=== PATIENT | female | born 1955 | race Caucasian/White ===

== ENCOUNTER → 2019-06-20 11:08 | Outpatient (CLI) | payer BC, SELFPAY ==
--- NOTE | ~2019-06-20 | MR_ITS ---
EXAMINATION: MR shoulder RT wo con DATE: 06/20/2019 11:50 INDICATION: Right shoulder and arm pain and clicking post fall 5 months prior. TECHNIQUE: Magnetic resonance imaging (MRI) of the right shoulder was performed without intravenous c ontrast. Sequences included axial PD-weighted FS FSE, coronal oblique PD-weighted FS FSE, coronal obl ique T2-weighted FS FSE, sagittal PD-weighted FS FSE, and sagittal T1-weighted SE. COMPARISON: None. FINDINGS: Coracoacromial arch: The acromion undersurface is curved in morphology (type II). The coracoacromial ligament is normal. M ild acromioclavicular osteoarthritis with small inferiorly directed osteophyte arising from the later al head of the clavicle. Rotator cuff: Moderate supraspinatus and mild infraspinatus tendinopathy. High-grade partial-thickness articular si ded tear measuring approximately 1.5 cm AP along the superior facet footplate of the supraspinatus an d conjoined portion of the supraspinatus and infraspinatus tendons. There is attenuation of the dista l aspect of the torn tendon with concave margin to the residual irregular frayed appearing bursal stefany ed fibers. There is a thickened rotator cuff able along the retracted articular sided tear margin whi ch is located approximately 2.5 cm from the greater tuberosity footplate approximately one third the distance between the apex of the humeral head and the rim of the glenoid. Although no discrete fluid signal intensity full-thickness tear defect is appreciated, small full-thickness perforations through the frayed bursal sided fibers could not be excluded. The teres minor tendon is normal. Mild subscap ularis tendinopathy without discrete tear. Normal rotator cuff muscle bulk and signal. Biceps tendon, glenoid labrum and glenohumeral cartilage: Full-thickness tear of the long head biceps tendon which is retracted below the intertubercular groov e. Thickening and frayed intra-articular portion of the torn tendon is balled up along the medial asp ect of the rotator cuff interval. There is degenerative tearing of the superior glenoid labrum which appears thickened with amorphous increased signal along its base which transitions to a more well-def ined linear tear at the base of the posterior superior labrum. [place] complex with absent anterosuper ior glenoid labrum and thickened middle glenohumeral ligament. Less severe degeneration of the lanre inferior glenoid labrum. Glenohumeral cartilage is relatively preserved. Fluid: Moderate-sized glenohumeral joint effusion with mild synovitis at the axillary and deep subscapular r ecesses. No loose osteochondral bodies. Small amount of fluid additional synovitis in the subacromial /subdeltoid bursa consistent with mild to moderate bursitis. Bones: Normal marrow signal with no fracture or pathologic marrow replacing process. IMPRESSION: 1. Severe partial-thickness/near full-thickness articular sided tear of the supraspinatus and conjoin ed portion of the supraspinatus and infraspinatus tendons. 2. [place] complex with tear at the posterior superior glenoid labrum and more irregular degenerative tearing of the superior and anteroinferior labrum. 3. Full-thickness tear of the long head biceps tendon. 4. Likely reactive moderate sized glenohumeral joint effusion. 5. Mild to moderate subacromial/subdeltoid bursitis. 6. Mild acromioclavicular joint osteoarthritis. Reviewed, dictated and finalized at location A. FORCE ADVISOR IMPRESSION: 1. Severe partial-thickness/near full-thickness articular sided tear of the sup raspinatus and conjoined portion of the supraspinatus and infraspinatus tendons . 2. [place] complex with tear at the posterior superior glenoid labrum and more i rregular degenerative tearing of the superior and ant
== END ==
PROVIDERS: PCP Internal Medicine; Visit Provider Orthopaedic Surgery
DX: M19.011 Primary osteoarthritis, right shoulder (principal); M75.51 Bursitis of right shoulder; M25.411 Effusion, right shoulder; S46.111A Strain of muscle, fascia and tendon of long head of biceps, right arm, initial encounter; S43.431A Superior glenoid labrum lesion of right shoulder, initial encounter
CPT/HCPCS: 73221

== ENCOUNTER 2020-04-02 14:48 | Outpatient (CLI) | payer BC, SELFPAY ==
--- NOTE | ~2020-04-02 | MM_ITS ---
EXAMINATION: MM screening lyric BI w britt HISTORY: Screening TECHNIQUE: Craniocaudal and mediolateral oblique 3-D tomosynthesis images were obtained and synthetic 2-D images were generated. CAD analysis was submitted and interpreted. COMPARISON: Comparison to multiple prior studies sequentially, with oldest reviewed study dated 01/12. BREAST PARENCHYMAL COMPOSITION: There are scattered areas of fibroglandular density. FINDINGS: There is no evidence of suspicious mass, calcification, or architectural distortion to sugg est malignancy in either breast. There has been no suspicious interval change. IMPRESSION: 1. No mammographic evidence of malignancy. 2. Recommend routine screening mammography in one year. BI-RADS Category 1: Negative Reviewed, dictated and finalized at location A. LIAISON
--- NOTE | ~2020-04-02 | DEXA_ITS ---
Bone Density Report Name: Nicole Barth Age: 64 Sex: Female Ethnicity: White Date of : 1955 Indication: postmenopausal; height loss; prior fracture; cancer; hysterectomy; Referring Provider: NICKY, RONNIE Study: Bone densitometry was performed. Exam Date: April 02, 2020 Accession number: [id number] Bone Density: Region BMD T-score Z-score Classification AP Spine (L1-L4) 0.963 -0.8 1.1 Normal Femoral Neck (Left) 0.790 -0.5 1.1 Normal Total Hip (Left) 1.054 0.9 2.2 Normal Total Hip Bilateral Avg 1.059 0.9 2.3 Normal Femoral Neck (Right) 0.785 -0.6 1.0 Normal Total Hip (Right) 1.062 1.0 2.3 Normal World Health Organization criteria for BMD impression classify patients as: Normal (T-score at or above -1.0), Osteopenia (T-score between -1.0 and -2.5), or Osteoporosis (T-score at or below -2.5). 10-year Fracture Risk: FRAX not reported because: All T-scores for Spine Total, Hip Total, Femoral Neck at or above -1.0 Previous Exams: Region Exam Age BMD T-score BMD Change BMD Change Date g/cm2 vs Baseline vs Previous AP Spine(L1-L4) 04/02/2020 64 0.963 -0.8 -0.012(-1.3%) 0.007(0.7%)# 02/07/2016 60 0.956 -0.8 -0.019(-2.0%)# -0.019(-2.0%)03/17/2012 56 0.975 -0.7 Total Hip(Left) 04/02/2020 64 1.054 0.9 0.029(2.8%)* 0.028(2.7%)# 02/07/2016 60 1.026 0.7 0.001(0.1%)# 0.001(0.1%)# 03/17/2012 56 1.025 0.7 Total Hip(Right) 04/02/2020 64 1.062 1.0 0.059(5.9%)* 0.066(6.6%)# 02/07/2016 60 0.996 0.4 -0.007(-0.7%)# -0.007(-0.7%)# 03/17/2012 56 1.003 0.5 *Denotes significance at 95% confidence level, LSC for AP Spine = 0.022 g/cm2, LSC for Total Hip = 0.027 g/cm2 Clinical Information Provided by Patient: Has had a low trauma fracture Has used the following medications: Vitamin D, Calcium Has the following medical conditions: Cancer, Hysterectomy Patient maximum height was 68 Menopause Age: 38 Drinks caffeinated beverages Onset of menses at age 10 Number of children 3 Impression: The patient has normal bone mass. The patient has risk factors, including: previous fracture. No significant bone loss was observed. Discussion: BONE DENSITY IS ABOVE THE MINIMUM DESIRABLE LEVEL AT ALL SKELETAL SITES TESTED. This patient?s bone mineral density is above the minimum desirable level (T-score -1.0 or better) at all sites measured. The patient should follow a healthful lifestyle (good nutrition
== END 2020-04-02 14:49 | disposition home or self-care (01) ==
PROVIDERS: PCP Internal Medicine; Visit Provider Nurse Practitioner
DX: Z12.31 Encounter for screening mammogram for malignant neoplasm of breast (principal); Z78.0 Asymptomatic menopausal state
CPT/HCPCS: 77063; 77067; 77080

== ENCOUNTER 2020-05-21 14:51 | Outpatient (CLI) | payer BC, SELFPAY ==
--- NOTE | ~2020-05-21 | XR_ITS ---
XR ribs LT 2V w CXR 2V DATE: 05/21/2020 15:12 INDICATION: Chest wall pain, pain under left axilla. No injury. TECHNIQUE: PA and lateral chest. Three views of left chest. COMPARISON: portable AP chest FINDINGS: Normal heart size. Minimal aortic tortuosity. No hilar or mediastinal enlargement. No pu lmonary infiltrate or consolidation, pulmonary vascular congestion or pleural effusion or pneumothora x. Surgical clips overlie the lower left neck. Diffuse osteopenia. No left rib fracture is detected. IMPRESSION: No active cardiopulmonary disease Diffuse osteopenia No rib fracture is detected. Reviewed, dictated and finalized at location A. RITY ESCORT
== END 2020-05-21 14:52 | disposition home or self-care (01) ==
PROVIDERS: Family Provider Internal Medicine; PCP Internal Medicine; Visit Provider Internal Medicine
DX: M85.88 Other specified disorders of bone density and structure, other site (principal)
CPT/HCPCS: 71046; 71100

== ENCOUNTER → 2020-06-14 08:57 | Outpatient (CLI) | payer BC, SELFPAY ==
--- NOTE | ~2020-06-14 | US_ITS ---
EXAMINATION: US axilla LT HISTORY: Palpable lumps of the left axilla, recent COVID 19 that examination. TECHNIQUE: High-resolution left axillary ultrasound is performed. FINDINGS: Multiple lymph nodes are seen in the left axilla in the area of clinical concern. The large st short axis diameter is 1.1 cm. No suspicious mass is identified. IMPRESSION: Mildly enlarged left axillary lymph node which could be reactive and related to COVID 19 vaccination. Recommend continued clinical follow-up with repeat imaging if physical examination remains abnormal. Reviewed, dictated and finalized at location A. PING ROOM HELPER IMPRESSION: Mildly enlarged left axillary lymph node which could be reactive and related to COVID 19 vaccination. Recommend continued clinical follow-up with repeat imagi ng if physical examination remains abnormal.
== END ==
PROVIDERS: PCP Internal Medicine; Visit Provider Nurse Practitioner
DX: M79.622 Pain in left upper arm (principal); R59.0 Localized enlarged lymph nodes
CPT/HCPCS: 76882

== ENCOUNTER → 2020-12-16 09:02 | Outpatient (CLI) | payer BC, SELFPAY ==
--- NOTE | ~2020-12-16 | XR_ITS ---
EXAMINATION: XR hip BI 2V w AP pelvis EXAM DATE: 12/16/2020 09:33 INDICATION: Pt c/o pain in bilateral hips, left hip lateral side and radiates through groin, right hi p occasional pain through groin x last couple months, no surg. TECHNIQUE: Each hip imaged independently (separate right and also left hip) 'frog leg' and frontal p rojections for interpretation. Frontal projection pelvis. There is no prior study for comparison. FINDINGS: No radiographic evidence of hip avascular necrosis. Symmetric mild bilateral hip primary o steoarthritis. There are no acute fractures or dislocations identified. There is no subcutaneous gas . The soft tissue is unremarkable. There are no radiopaque foreign bodies. IMPRESSION: Mild bilateral hip osteoarthritis. Reviewed, dictated and finalized at location A.
== END ==
PROVIDERS: PCP Internal Medicine; Visit Provider Internal Medicine
DX: M16.0 Bilateral primary osteoarthritis of hip (principal)
CPT/HCPCS: 73521

== ENCOUNTER 2021-02-10 08:45 | Outpatient (CLI) | payer BC, SELFPAY ==
--- NOTE | ~2021-02-10 | CT_ITS ---
EXAMINATION: CT abdomen pelvis wo con DATE: 02/10/2021 09:13 INDICATION: Left lower quadrant pain for 4 months TECHNIQUE: Computed tomography (CT) of the abdomen and pelvis was performed without intravenous contr ast. The dose-length product was 1209.96 mGy-cm. Automated exposure control and iterative reconstruct ion technique were employed. COMPARISON: None. FINDINGS: Lung bases are unremarkable. Heart size normal. No significant pleural or pericardial effus ion. The liver, spleen, pancreas, adrenal glands and kidneys are unremarkable. Gallbladder is present . There is retroaortic left renal vein. Nonobstructive bowel gas pattern. No evidence for diverticuli tis. Uterus is surgically absent. No free air or free fluid. Mild levocurvature of the lumbar spine. Mild lumbar spondylosis with grade 1 degenerative spondylolisthesis at L4-5. Small fat-containing umb ilical hernia. IMPRESSION: 1. No acute abdominal abnormality. Reviewed, dictated and finalized at location B.
== END 2021-02-10 08:46 | disposition home or self-care (01) ==
PROVIDERS: PCP Internal Medicine; Visit Provider Internal Medicine
DX: R10.32 Left lower quadrant pain (principal); K42.9 Umbilical hernia without obstruction or gangrene; M43.16 Spondylolisthesis, lumbar region
CPT/HCPCS: 74176

== ENCOUNTER → 2021-11-17 00:22 | Outpatient (CLI) | payer MEDICARE, OTHER, SELFPAY ==
[2021-11-17 11:12] LABS: SARS-CoV-2 RNA PCR Negative
== END ==
PROVIDERS: PCP Internal Medicine; Visit Provider Internal Medicine
DX: Z20.822 Contact with and (suspected) exposure to COVID-19 (principal)
CPT/HCPCS: C9803; U0003; U0005

== ENCOUNTER → 2022-06-04 10:14 | Outpatient (CLI) | payer MEDICARE, OTHER, SELFPAY ==
--- NOTE | ~2022-06-04 | CT_ITS ---
EXAMINATION: CT sinus wo con DATE: 06/04/2022 10:32 INDICATION: Chronic bilateral maxillary sinusitis TECHNIQUE: Computed tomography (CT) of the paranasal sinuses was performed without intravenous contra st. The dose-length product (DLP) was 387.90 mGy-cm. Iterative reconstruction was used. COMPARISON: None FINDINGS: There is normal development and pneumatization of the paranasal sinuses. There is minimal o pacification of ethmoidal air cells and right maxillary sinus. The frontal, sphenoid, and left maxill keenan sinuses are clear. The bilateral ostiomeatal complexes are patent. Visualized soft tissues are un remarkable. The mastoid air cells are clear. IMPRESSION: 1. Mild sinus disease. Reviewed, dictated and finalized at location B. SCREW ASSEMBLER IMPRESSION: 1. Mild sinus disease.
== END ==
PROVIDERS: PCP Otolaryngology; Visit Provider Otolaryngology
DX: J32.0 Chronic maxillary sinusitis (principal)
CPT/HCPCS: 70486

== ENCOUNTER 2022-08-09 20:26 | Emergency (ER) | payer MEDICARE, OTHER, SELFPAY ==
--- NOTE | ~2022-08-09 | XR_ITS ---
EXAMINATION: XR chest 2V 08/09/2022 21:06 INDICATION: Chest pain and palpitations PROCEDURE: 2 view chest COMPARISON: 12/25/2018 FINDINGS: The lungs are clear. Chronic left basilar atelectasis/scarring. The cardiomediastinal silho uette is within normal limits. There are no pleural effusions. There is no pneumothorax suspected. IMPRESSION: 1: NO ACUTE CARDIOPULMONARY DISEASE. Reviewed, dictated and finalized at location A.
--- NOTE | 2022-08-09 20:31 | ECG_ITS ---
Measurements Intervals [place] Rate: 122 P: 31 [place]: 172 QRS: -11 QRSD: 96 T: 37 QT: 298 QTc: 426 Interpretive Statements SINUS TACHYCARDIA COMPARED TO ECG 12/25/2018 07:27:55 SINUS TACHYCARDIA NOW PRESENT Electronically Signed On 08-10-2022 17:38:15 CDT by Anselmo Solis M.D.
[2022-08-09 20:36] VITALS: BP 141/102; PULSE 123; RESP 14; TEMP 36.6; O2SAT 98
[2022-08-09 20:46] LABS: Basophils Percent Auto 0.5 % (0.2-1.2); Eosinophils Absolute Auto 0.2 K/mm3 (0-0.3); Eosinophils Percent Auto 2.6 % (0-4.4); Hematocrit 36.9 % (37.0-47.0); Hemoglobin 12.3 g/dL (12.0-15.0); Immature Granulocyte Absolute 0.02 K/mm3 (0.00-0.031); Immature Granulocyte Percent A 0.2 % (0-0.5); Lymphocytes Absolute Auto 3.39 K/mm3 (0.9-3.2); Lymphocytes Percent Auto 40.6 % (18.3-44.2); Mean Corpuscular HGB Conc 33.3 g/dl (32-36); Mean Corpuscular Hemoglobin 29.1 pg (26-34); Mean Corpuscular Volume 87.4 fl (80-100); Mean Platelet Volume 10.3 fl (7.4-10.4); Monocytes Absolute Auto 0.9 K/mm3 (0.1-0.6); Monocytes Percent Auto 10.5 % (2.6-8.5); Neutrophils Absolute Auto 3.8 K/mm3 (1.3-6.7); Neutrophils Percent Auto 45.6 % (45.5-73.1); Platelet Count Result 267 k/mm3 (150-375); Red Blood Count 4.22 M/mm3 (4.2-5.4); Red Cell Distribution Width 14.6 % (11.5-14.5); White Blood Count 8.4 K/mm3 (4.5-10.0)
[2022-08-09 21:00] LABS: INR 1.1; Prothrombin Time 14.1 Seconds (11.1-14.7)
[2022-08-09 21:01] LABS: Alanine Aminotransferase 34 U/L (6-35); Alkaline Phosphatase 85 U/L (38-126); Anion Gap 12 mmol/L (8-16); Aspartate Amino Transferase 30 U/L (14-36); Bilirubin,Total 0.5 mg/dL (0.2-1.3); Blood Urea Nitrogen 18 mg/dL (7-17); Carbon Dioxide 21 mmol/L (22-30); Chloride 105 mmol/L (98-107); Estimated CRCL calculation 70 ml/min; Estimated Glomerular Filt Rate > 60; Glucose 201 mg/dL (65-110); Lipase 434 U/L (23-300); Partial Thromboplastin Time 25.1 SECONDS (22.3-36.8); Potassium 3.7 mmol/L (3.4-5.0); Sodium 138 mmol/L (137-145)
[2022-08-09 21:12] LABS: Troponin I < 0.012 ng/mL (0.000-0.034)
== END 2022-08-09 23:17 | disposition left against medical advice (07) ==
PROVIDERS: Emergency Provider Emergency Medicine; PCP Internal Medicine
DX: R00.0 Tachycardia, unspecified (principal)
CPT/HCPCS: 36415; 71046; 80053; 83690; 84484; 85025; 85610; 85730; 93005; 99199

== ENCOUNTER 2022-08-19 19:19 | Emergency (ER) | payer MEDICARE, OTHER, SELFPAY ==
[2022-08-19 19:35] VITALS: BP 145/90; PULSE 82; RESP 16; TEMP 36.9; O2SAT 99
--- NOTE | 2022-08-19 19:36 | ED.URI ---
HPI - URI/Sore Throat General Chief Complaint: Upper Respiratory Infection Stated Complaint: COUGH/WHEEZING Source: patient and RN notes reviewed History of Present Illness HPI Narrative: 67 yo F presents to urgent care with complaints of a worsening cough since last Tuesday. Pt states her cough seems to be worse at nighttime. Pt also reports congestion and pressure in her sinuses, specifically left frontal. Pt reports some wheezing at home and reports upper chest pain with coughing. Pt reports some SOB. Denies any fevers, chills, vomiting, diarrhea, or abdominal pain. Pt took Mucinex today with minimal relief. Related Data Home Medications Medication Instructions Recorded Confirmed ascorbic acid (vitamin C) 1,000 mg 1 gm PO DAILY 04/02/19 08/19/22 tablet (Vitamin C With Eliane Hips) calcium carbonate 500 mg calcium 500 mg PO DAILY 04/02/19 08/19/22 (1,250 mg) capsule (Calci-Mix) cholecalciferol (vitamin D3) 125 5,000 unit PO DAILY 04/02/19 08/19/22 mcg (5,000 unit) capsule coenzyme Q10 10 mg capsule (Co 10 mg PO ONCE 04/02/19 08/19/22 Q-10) levothyroxine 137 mcg tablet 137 mcg PO DAILY 04/02/19 08/19/22 multivitamin 1 tablet PO DAILY 04/02/19 08/19/22 plant stanol bruce 450 mg tablet 450 mg PO DAILY 04/02/19 08/19/22 (Cholest Off) melatonin 10 mg disintegrating 10 mg PO DAILY 04/03/19 08/19/22 tablet levocetirizine 5 mg tablet (Xyzal) 5 mg PO DAILY PRN Congestion 05/21/20 08/19/22 magnesium 250 mg tablet 250 mg PO DAILY PRN useasdirected 08/10/21 08/19/22 Allergies Allergy/AdvReac Type Severity Reaction Status Date / Time codeine Allergy Severe Itching Verified 08/19/22 19:42 doxycycline Allergy Intermediate Nausea Verified 08/19/22 19:42 Sulfa (Sulfonamide Allergy Unknown Fever Verified 08/19/22 19:42 Antibiotics) Review of Systems Review of Systems: Pertinent positives and pertinent negatives per HPI. [facility] Past Medical History Medical History (Updated 08/19/22 @ 19:55 by Lluvia Gallo, BROTHEL KEEPER) Abdominal pain, left lower quadrant IFG (impaired fasting glucose) Pre-diabetes Surgical History Surgical History H/O thyroidectomy H/O: hysterectomy Family History Family History Sibling Family history of malignant neoplasm of ovary Family history of lung cancer Family history of malignant neoplasm of breast in first degree relative Father Malignant neoplasm of prostate Family history of malignant neoplasm of kidney Mother Family history of malignant neoplasm of ovary Other Family history of cardiovascular disease Family history of malignant neoplasm Social History Social History Smoking status: Unknown if ever smoked Second hand tobacco smoke exposure: No Smoking end date: 04/25/78 Alcohol intake: current Substance use: never Lack of Transportation: No Lack of Food: Never True Current Housing: I Have Housing Concerned About Future Housing: No Difficulty Paying Gas/Electric Bills: No Difficulty Paying for Meds: No Currently Unemployed: No Education: High School Diploma/GED Difficulty w/ Childcare or Family Care: No Spiritual care concerns: No Comments At the time of my signature, I reviewed and agree with the nursing past medical, surgical, social, and family history. There is no relevant family history pertinent to the patient complaint. Exam Narrative: GENERAL: This is a well-nourished, well-developed patient, in no apparent distress. HEAD: normocephalic, atraumatic. EYES: Sclera clear/white. Vision is grossly intact. EARS: External ears normal, auditory canals clear and without drainage, TMs normal without perforation. Hearing grossly intact. NOSE: External nose normal with no obvious nasal discharge, nares without redness, no rhinorrhea. THROAT: Mucous membrane
== END 2022-08-19 20:03 | disposition home or self-care (01) ==
PROVIDERS: Emergency Provider Nurse Practitioner Family; PCP Internal Medicine
DX: J40 Bronchitis, not specified as acute or chronic (principal); J01.10 Acute frontal sinusitis, unspecified; Z87.891 Personal history of nicotine dependence; R73.01 Impaired fasting glucose; R73.03 Prediabetes
CPT/HCPCS: 99213; G0463

== ENCOUNTER 2022-09-01 14:30 | Outpatient (RCR) | payer MEDICARE, OTHER, SELFPAY ==
[2022-08-12 15:18] VITALS: BMI 36.0
[2022-08-12 15:20] VITALS: BMI 36.0
== END 2022-10-18 11:05 | disposition home or self-care (01) ==
LOC: ANHDMC 14:30
PROVIDERS: PCP Internal Medicine; Visit Provider Internal Medicine
DX: E11.9 Type 2 diabetes mellitus without complications (principal); Z71.89 Other specified counseling; Z71.3 Dietary counseling and surveillance
CPT/HCPCS: 97802; G0108; G0109

== ENCOUNTER 2022-11-17 14:30 | Outpatient (RCR) | payer MEDICARE, OTHER, SELFPAY | END 2023-01-31 13:23 | disposition home or self-care (01) | LOC: ANHDMC 14:30 | PROVIDERS: PCP Internal Medicine; Visit Provider Internal Medicine | DX: E11.9 Type 2 diabetes mellitus without complications (principal); Z71.89 Other specified counseling | CPT/HCPCS: G0109 ==

== ENCOUNTER 2023-02-10 14:49 | Outpatient (RCR) | payer MEDICARE, OTHER, SELFPAY | END 2023-02-28 11:13 | disposition home or self-care (01) | LOC: ANHDMC 14:49 | PROVIDERS: PCP Internal Medicine; Visit Provider Internal Medicine | DX: E11.9 Type 2 diabetes mellitus without complications (principal); Z71.89 Other specified counseling | CPT/HCPCS: G0109 ==

== ENCOUNTER 2023-05-19 08:08 | Outpatient (CLI) | payer MEDICARE, OTHER, SELFPAY ==
[2023-05-19 13:39] LABS: Basophils Percent Auto 0.4 % (0.2-1.2); Eosinophils Absolute Auto 0.2 K/mm3 (0-0.3); Eosinophils Percent Auto 4.7 % (0-4.4); Hemoglobin 11.2 g/dL (12.0-15.0); Immature Granulocyte Absolute 0.01 K/mm3 (0.00-0.031); Immature Granulocyte Percent A 0.2 % (0-0.5); Lymphocytes Absolute Auto 1.66 K/mm3 (0.9-3.2); Lymphocytes Percent Auto 35.8 % (18.3-44.2); Mean Corpuscular HGB Conc 31.1 g/dl (32-36); Mean Corpuscular Hemoglobin 27.3 pg (26-34); Mean Corpuscular Volume 87.8 fl (80-100); Mean Platelet Volume 11.3 fl (7.4-10.4); Monocytes Absolute Auto 0.5 K/mm3 (0.1-0.6); Monocytes Percent Auto 10.1 % (2.6-8.5); Neutrophils Absolute Auto 2.3 K/mm3 (1.3-6.7); Neutrophils Percent Auto 48.8 % (45.5-73.1); Platelet Count Result 264 k/mm3 (150-375); Red Cell Distribution Width 15.5 % (11.5-14.5); White Blood Count 4.6 K/mm3 (4.5-10.0)
[2023-05-19 13:59] LABS: Hemoglobin A1C 6.7 % (<5.7)
[2023-05-19 14:14] LABS: Alanine Aminotransferase 27 U/L (6-35); Albumin Level 4.6 g/dL (3.5-5.1); Alkaline Phosphatase 80 U/L (38-126); Anion Gap 11 mmol/L (8-16); Aspartate Amino Transferase 34 U/L (14-36); Bilirubin,Total 0.5 mg/dL (0.2-1.3); Blood Urea Nitrogen 16 mg/dL (7-17); Carbon Dioxide 24 mmol/L (22-30); Chloride 106 mmol/L (98-107); Estimated Glomerular Filt Rate > 60; Glucose 104 mg/dL (65-110); Potassium 3.8 mmol/L (3.4-5.0); Sodium 141 mmol/L (137-145)
== END 2023-05-19 08:09 | disposition home or self-care (01) ==
PROVIDERS: PCP Internal Medicine; Visit Provider Internal Medicine
DX: R00.2 Palpitations (principal); E11.9 Type 2 diabetes mellitus without complications; I83.90 Asymptomatic varicose veins of unspecified lower extremity; E89.0 Postprocedural hypothyroidism; E55.9 Vitamin D deficiency, unspecified; C73 Malignant neoplasm of thyroid gland
CPT/HCPCS: 36415; 80053; 82306; 83036; 84443; 85025; 86800

== ENCOUNTER 2023-06-04 10:16 | Emergency (ER) | payer MEDICARE, OTHER, SELFPAY ==
[2023-06-04 10:25] VITALS: BP 133/91; PULSE 105; RESP 20; TEMP 37.2; O2SAT 99
--- NOTE | 2023-06-04 10:34 | ED.URI ---
HPI - URI/Sore Throat General Chief Complaint: Upper Respiratory Infection Stated Complaint: COUGH/CONGESTION/SINUS Time Seen by Provider: 06/04/23 10:34 Source: patient and family Mode of arrival: ambulatory Limitations: no limitations History of Present Illness HPI Narrative: 67-year-old female presents with complaint of cough, chest congestion, fatigue for 6 days. No chest pain or shortness of breath. Patient also reports some intermittent sinus pressure and ear pain. Afebrile. All systems reviewed and negative except as noted above. Related Data Home Medications Medication Instructions Recorded Confirmed ascorbic acid (vitamin C) 1,000 mg 1 gm PO DAILY 04/02/19 05/24/23 tablet (Vitamin C With Eliane Hips) calcium carbonate 500 mg calcium 500 mg PO DAILY 04/02/19 05/24/23 (1,250 mg) capsule (Calci-Mix) cholecalciferol (vitamin D3) 125 5,000 unit PO DAILY 04/02/19 05/24/23 mcg (5,000 unit) capsule coenzyme Q10 10 mg capsule (Co 10 mg PO ONCE 04/02/19 05/24/23 Q-10) levothyroxine 137 mcg tablet 137 mcg PO DAILY 04/02/19 05/24/23 multivitamin 1 tablet PO DAILY 04/02/19 05/24/23 plant stanol bruce 450 mg tablet 450 mg PO DAILY 04/02/19 05/24/23 (Cholest Off) melatonin 10 mg disintegrating 10 mg PO DAILY 04/03/19 05/24/23 tablet levocetirizine 5 mg tablet (Xyzal) 5 mg PO DAILY PRN Congestion 05/21/20 05/24/23 magnesium 250 mg tablet 250 mg PO DAILY PRN useasdirected 08/10/21 05/24/23 Allergies Allergy/AdvReac Type Severity Reaction Status Date / Time codeine Allergy Severe Itching Verified 05/24/23 09:00 doxycycline Allergy Intermediate Nausea Verified 05/24/23 09:00 Sulfa (Sulfonamide Allergy Unknown Fever Verified 05/24/23 09:00 Antibiotics) Review of Systems Review of Systems: CONSTITUTIONAL: Denies fever, chills, or sweats. EYES: Denies visual changes, redness, or discharge. ENT: Reports rhinorrhea, congestion, sinus pressure, ear pressure. Denies sore throat CARDIOVASCULAR: Denies chest pain, palpitations, or edema. RESPIRATORY: reports cough. Denies dyspnea. GASTROINTESTINAL: Denies abdominal pain, nausea, vomiting, or diarrhea. GENITOURINARY: Denies dysuria or hematuria. SKIN: Denies rash or itching. MUSCULOSKELETAL: Denies back pain, joint pain, or myalgia. NEUROLOGIC: Denies headache, numbness, or weakness. PSYCHIATRIC: Denies anxiety or depression. All other systems reviewed are negative, except as documented in HPI. [facility] Past Medical History Medical History Abdominal pain, left lower quadrant IFG (impaired fasting glucose) Pre-diabetes Surgical History Surgical History H/O thyroidectomy H/O: hysterectomy Family History Family History Sibling Family history of malignant neoplasm of ovary Family history of lung cancer Family history of malignant neoplasm of breast in first degree relative Father Malignant neoplasm of prostate Family history of malignant neoplasm of kidney Mother Family history of malignant neoplasm of ovary Other Family history of cardiovascular disease Family history of malignant neoplasm Social History Social History (Updated 05/24/23 @ 09:05 by Yakelin Briceño CMA) Social History: Caffeine-coffee/tea Smoking status: Former smoker Second hand tobacco smoke exposure: No Smoking end date: 04/25/78 Alcohol intake: current Alcohol use details: occasionally Substance use: never Substance use type: does not use Do You Feel Safe in your Home?: Yes Lack of Transportation: No Lack of Food: Never True Current Housing: I Have Housing Concerned About Future Housing: No Difficulty Paying Gas/Electric Bills: No Difficulty Paying for Meds: No Currently Unemployed: No Education: High School Diploma/GED Difficulty w/ Childcare or Family Care:
== END 2023-06-04 11:10 | disposition home or self-care (01) ==
PROVIDERS: Emergency Provider Nurse Practitioner Family; PCP Internal Medicine
DX: J06.9 Acute upper respiratory infection, unspecified (principal); Z87.891 Personal history of nicotine dependence; R73.03 Prediabetes
CPT/HCPCS: 99213; G0463

== ENCOUNTER 2023-11-18 08:47 | Outpatient (CLI) | payer MEDICARE, OTHER, SELFPAY ==
[2023-11-18 19:01] LABS: Alanine Aminotransferase 26 U/L (6-35); Albumin Level 4.4 g/dL (3.5-5.1); Alkaline Phosphatase 84 U/L (38-126); Anion Gap 12 mmol/L (4-12); Aspartate Amino Transferase 33 U/L (14-36); Bilirubin,Total 0.4 mg/dL (0.2-1.3); Blood Urea Nitrogen 12 mg/dL (7-17); Calcium 8.9 mg/dL (8.4-10.2); Carbon Dioxide 22 mmol/L (22-30); Chloride 104 mmol/L (98-107); Cholesterol 131 mg/dL (0-200); Estimated Glomerular Filt Rate > 60; Glucose 122 mg/dL (65-110); HDL Direct 30 mg/dL; Potassium 4.2 mmol/L (3.4-5.0); Sodium 138 mmol/L (137-145); Triglycerides 149 mg/dL (<150)
[2023-11-18 19:13] LABS: LDL Cholesterol Direct 70 mg/dL
[2023-11-18 19:27] LABS: Hemoglobin A1C 6.9 % (<5.7)
[2023-11-18 19:40] LABS: Ferritin 6.18 ng/mL (11.1-264)
[2023-11-18 19:49] LABS: Creatinine Urine 117.4 mg/dL
[2023-11-18 19:53] LABS: MALB Creatinine Ratio 10.5 mg/g (0-30); Microalbumin Urine Random 12.3 mg/L (0-16.7)
[2023-11-29 05:29] LABS: Apolipoprotein B 76 mg/dL
== END 2023-11-18 08:48 | disposition home or self-care (01) ==
LOC: ANHGOSHLAB 08:49
PROVIDERS: PCP Internal Medicine; Visit Provider Internal Medicine
DX: E03.9 Hypothyroidism, unspecified (principal); E11.9 Type 2 diabetes mellitus without complications; E78.2 Mixed hyperlipidemia; I10 Essential (primary) hypertension; D64.9 Anemia, unspecified; Z85.850 Personal history of malignant neoplasm of thyroid
CPT/HCPCS: 36415; 80053; 80061; 82043; 82172; 82728; 83036; 84443

== ENCOUNTER 2023-12-13 10:01 | Outpatient (CLI) | payer MEDICARE, OTHER, SELFPAY ==
--- NOTE | ~2023-12-13 | US_ITS ---
EXAMINATION: US carotid duplex BI DATE: 12/13/2023 10:44 INDICATION: Carotid stenosis. TECHNIQUE: Grayscale, color Doppler, and pulsed Doppler images of the cervical carotid arteries were obtained. The degree of vessel stenosis is placed in one of the following categories: normal, <50%, 5 0-69%, >=70% but less than near-occlusion, near-occlusion, or total occlusion. Note that percent sten osis relative to normal distal artery lumen diameter is indirectly measured from velocity measurement s as described by Gerry, et al. Radiology 2003; 229:340-346. Notes: Normal: Peak systolic velocity <125 centimeters/sec and no plaque <50%. Peak systolic velocity <125 ( EDV <40; ICA/CCA PSV ratio <2.0; used these factors only a tandem lesions or low cardiac output or co ntralateral disease) 50-69 %: PSV 125-230 (EDV 40-100; ratio 2-4) >= 70% but less than near occlusion: PSV greater than 230 (EDV > 100; ratio> 4.0) Near Occlusion: PSV that is variable; markedly narrowed lumen Occlusion: Absent flow on color/spectral Doppler and no lumen on bear scale. COMPARISON: None. FINDINGS: RIGHT: The right common carotid artery (CCA) peak systolic velocity (PSV) is 78 cm/s. The right internal car otid artery (ICA) PSV is 54 cm/s. The right ICA end-diastolic velocity (EDV) is 19 cm/s. The right IC A/CCA PSV ratio is 0.7. The external carotid artery (ECA) PSV is 94 cm/s. There is antegrade flow in the right vertebral artery. LEFT: The left CCA PSV is 70 cm/s. The left ICA PSV is 59 cm/s. The left ICA EDV is 25 cm/s. The left ICA/C CA PSV ratio is 0.8. The ECA PSV is 95 cm/s. There is antegrade flow in the left vertebral artery. IMPRESSION: 1. Less than 50% stenosis in the right internal carotid artery by sonographic criteria. 2. Less than 50% stenosis in the left internal carotid artery by sonographic criteria. Reviewed, dictated and finalized at location B. IMPRESSION: 1. Less than 50% stenosis in the right internal carotid artery by sonographic c ziyad. 2. Less than 50% stenosis in the left internal carotid artery by sonographic tereso vargas.
== END 2023-12-13 10:02 | disposition home or self-care (01) ==
PROVIDERS: PCP Internal Medicine; Visit Provider Internal Medicine
DX: I65.23 Occlusion and stenosis of bilateral carotid arteries (principal)
CPT/HCPCS: 93880

== ENCOUNTER 2024-03-02 10:40 | Emergency (ER) | payer MEDICARE, OTHER, SELFPAY ==
--- NOTE | 2024-03-02 10:44 | ED.EAR ---
HPI - Ear Problem General Chief complaint: Ear Stated complaint: bilateral ear pain,cough Time Seen by Provider: 03/02/24 11:05 Source: patient and RN notes reviewed Mode of arrival: ambulatory Limitations: no limitations History of Present Illness HPI Narrative: 68 year old female presents with concern for 2 week history of sinus congestion, worse on the left, ear pain and pressure, cough. Reports she has been taking multiple [id number] medications with not very much relief. She has been taking pseudoephedrine occasionally. She denies fever, aches, chills, sweats. MD Complaint: ear pain Related Data Home Medications Medication Instructions Recorded Confirmed ascorbic acid (vitamin C) 1,000 mg 1 gm PO DAILY 04/02/19 01/05/24 tablet (Vitamin C With Eliane Hips) calcium carbonate (Calci-Mix) 500 mg PO DAILY 04/02/19 01/05/24 cholecalciferol (vitamin D3) 125 5,000 unit PO DAILY 04/02/19 01/05/24 mcg (5,000 unit) capsule coenzyme Q10 10 mg capsule (Co 10 mg PO ONCE 04/02/19 01/05/24 Q-10) levothyroxine 137 mcg tablet 137 mcg PO DAILY 04/02/19 01/05/24 multivitamin 1 tablet PO DAILY 04/02/19 01/05/24 plant stanol bruce 450 mg tablet 450 mg PO DAILY 04/02/19 01/05/24 (Cholest Off) melatonin 10 mg disintegrating 10 mg PO DAILY 04/03/19 01/05/24 tablet levocetirizine 5 mg tablet (Xyzal) 5 mg PO DAILY PRN Congestion 05/21/20 01/05/24 magnesium 250 mg tablet 250 mg PO DAILY PRN useasdirected 08/10/21 01/05/24 ferrous sulfate 27 mg iron tablet 27 mg PO DAILY 01/05/24 01/05/24 Allergies Allergy/AdvReac Type Severity Reaction Status Date / Time codeine Allergy Severe Itching Verified 03/02/24 11:25 doxycycline Allergy Intermediate Nausea Verified 03/02/24 11:25 Sulfa (Sulfonamide Allergy Unknown Fever Verified 03/02/24 11:25 Antibiotics) Review of Systems Review of Systems: CONSTITUTIONAL: Denies malaise, chills, sweats, or fever. EYES: Denies visual changes, redness, or discharge. ENT: Reports rhinorrhea, congestion, sinus pain, ear pain CARDIOVASCULAR: Denies chest pain, palpitations, or edema. RESPIRATORY: Reports cough. Denies dyspnea. GASTROINTESTINAL: Denies abdominal pain, nausea, vomiting, diarrhea SKIN: Denies rash or itching. MUSCULOSKELETAL: Denies myalgia. NEUROLOGIC: Denies headache. All systems reviewed & are unremarkable except as noted in HPI and below PMFSH Past Medical History Medical History (Updated 03/02/24 @ 11:19 by Dee Bay NP) Abdominal pain, left lower quadrant Carotid artery stenosis IFG (impaired fasting glucose) Irritable bowel syndrome with diarrhea Pre-diabetes Sjogren syndrome Surgical History Surgical History H/O thyroidectomy H/O: hysterectomy Family History Family History Sibling Family history of malignant neoplasm of ovary Family history of lung cancer Family history of malignant neoplasm of breast in first degree relative Father Malignant neoplasm of prostate Family history of malignant neoplasm of kidney Mother Family history of malignant neoplasm of ovary Other Family history of cardiovascular disease Family history of malignant neoplasm Social History Social History Social History: Caffeine-coffee/tea Smoking status: Former smoker Second hand tobacco smoke exposure: No Smoking end date: 04/25/78 Alcohol intake: current Alcohol use details: occasionally Substance use: never Substance use type: does not use Do You Feel Safe in your Home?: Yes Lack of Transportation: No Lack of Food: Never True Current Housing: I Have Housing Concerned About Future Housing: No Difficulty Paying Gas/Electric Bills: No Difficulty Paying for Meds: No Currently Unemployed: No Education: High School Diploma/GED Difficulty w/ Childcare or Family Care: No Spiritual care concerns: No Comments At time of signature, agree with nursing past medical, surgical, social and family history. There is no relevant family history pertinent to the presenting complaint Exam Narrative: GENERAL: Well-appearing, well-nourished, and in no acute distress. HEAD: Normocephalic EYES: PERRLA, conjunctivae clear ENT: Nares clear. Mucous membranes moist. TM pearly bear with dull light reflex bilaterally; no tragal tenderness. Oropharynx not erythematous without lesions. Tonsils not enlarged and without exudate, no drooling, no hoarseness, no trismus, uvula midline. NECK: Supple. No lymphadenopathy CHEST: Clear to auscultation, breath sounds equal. No wheezing, rhonchi, rales, or stridor. No respiratory distress, speaks in full sentences. HEART: Regular rate and rhythm. No murmur heard. SKIN: Warm, dry, no rash. NEURO: Alert and oriented x3. PSYCH: Normal mood and affect Course Course Emergency Course: Patient is aware of diagnosis, understands and agrees to treatment plan. Anticipatory guidance given. Patient agrees to follow-up as directed and is aware of reasons to seek care at the emergency department. Portions of this record may have been created with voice recognition software Level of Care: [facility] Visit Vital Signs Vital signs: Reviewed. Medical Decision Making MDM Narrative Medical decision making narrative: I evaluated [facility]. History is obtained from patient who is an independent historian and physical exam was performed.? Available medical records were reviewed. ? Exam findings and relevant testing show no acute concerns or changes; patient is non-toxic appearing and is in no distress. Differential diagnosis considered: Chandler virus, strep pharyngitis, allergic rhinitis, upper respiratory tract infection, sinusitis, rhinosinusitis, nasopharyngitis. viral pharyngitis, otitis media, otitis externa, otitis effusion, cerumen impaction, foreign body. Exam findings show no acute concerns or changes; patient is non-toxic appearing and is in no distress. Patient is appropriate for outpatient treatment and follow-up. ? Differential diagnosis and treatment plan were discussed with the patient. Patient agrees with discussion and after shared medical decision making agrees with plan of care. All questions were answered to the patient's satisfaction. Patient is appropriate for outpatient treatment and follow-up. Critical Care Time Critical Care Time Critical Care Time: No Discharge Plan Discharge Clinical Impression: Acute bacterial sinusitis Patient Disposition: Home, Self-Care Condition: Stable Instructions: Antibiotic Form, Sinusitis (ED) Additional Instructions: Take medication as prescribed Nonprescription pain medications, such as acetaminophen (eg, Tylenol) or ibuprofen (eg, Motrin, Advil), are recommended for pain. Flushing the nose and sinuses with a saline solution several times per day has been proven to decrease pain associated with congestion and shorten the duration of symptoms. Nasal steroids (such as Flonase, 2 sprays in each nostril daily) can help to reduce swelling inside the nose, usually within two to three days. These drugs have few side effects and relieve symptoms in most people. Oral decongestants (pseudoephedrine and phenylephrine) may be helpful if you have associated symptoms of ear pain or fullness. Nasal decongestant sprays, including oxymetazoline (Afrin) and phenylephrine (Rm-Synephrine), can be used to temporarily treat congestion. However, these sprays should not be used for more than two to three days due to the risk of rebound congestion (when the nose becomes congested constantly unless the medication is used repeatedly), possible addiction, and long-term consequences of frequent use, including persistent nasal dryness and crusting, which is very difficult to treat once it has developed. Medications to thin secretions (such as guaifenesin) may help to clear mucus. Please follow-up with your primary care doctor in the next 1-2 days. If you cannot follow-up with your primary care doctor please go to the ED for any urgent issues. If you have any worsening of symptoms or any other concerns please go to the ED immediately. Prescriptions: New pseudoephedrine HCl [12 Hour Decongestant] 120 mg tablet extended release 120 mg PO Q12H PRN (Reason: nasal congestion) Qty: 20 0RF amoxicillin-pot clavulanate 875-125 mg tablet 1 tablet PO Q12H 10 Days Qty: 20 0RF No Action magnesium 250 mg tablet 250 mg PO DAILY PRN (Reason: useasdirected) ferrous sulfate 27 mg iron tablet 27 mg PO DAILY dicyclomine 10 mg capsule 10 mg PO TID PRN (Reason: abdominal pain) Qty: 90 5RF melatonin 10 mg tablet,disintegrating 10 mg PO DAILY levocetirizine [Xyzal] 5 mg tablet 5 mg PO DAILY PRN (Reason: Congestion) levothyroxine 137 mcg tablet 137 mcg PO DAILY coenzyme Q10 [Co Q-10] 10 mg capsule 10 mg PO ONCE multivitamin Tablet 1 tablet PO DAILY ascorbic acid (vitamin C) [Vitamin C With Eliane Hips] 1,000 mg tablet 1 gm PO DAILY cholecalciferol (vitamin D3) 5,000 unit capsule 5,000 unit PO DAILY Cholest Off 450 mg tablet 450 mg PO DAILY Calci-Mix 500 mg calcium (1,250 mg) capsule 500 mg PO DAILY omeprazole 20 mg capsule,delayed release(DR/EC) 20 mg PO DAILY Qty: 90 1RF metformin 1,000 mg tablet 1,000 mg PO BID Qty: 180 1RF atorvastatin 80 mg tablet 80 mg PO DAILY Qty: 90 1RF lisinopril 40 mg tablet 40 mg PO DAILY Qty: 90 1RF metoprolol succinate [Toprol XL] 100 mg tablet extended release 24 hr 100 mg PO DAILY Qty: 90 1RF amlodipine 10 mg tablet See Rx Instructions .ROUTE .COMPLEX Qty: 90 1RF Dose Instruction: TAKE 1 TABLET BY MOUTH DAILY Rx Instructions: TAKE 1 TABLET BY MOUTH DAILY (DME) OneTouch Verio test strips Strip See Rx Instructions .Route Qty: 100 3RF Rx Instructions: As directed zolpidem 10 mg tablet 10 mg PO QHS Qty: 30 3RF Follow-up/Referrals: Gentry Enriquez DO [Primary Care Provider] - Time of Disposition: 11:21
[2024-03-02 10:50] VITALS: BP 120/85; PULSE 86; RESP 16; TEMP 36.6; O2SAT 99
== END 2024-03-02 11:25 | disposition home or self-care (01) ==
PROVIDERS: Emergency Provider Nurse Practitioner; PCP Internal Medicine
DX: J01.90 Acute sinusitis, unspecified (principal); Z87.891 Personal history of nicotine dependence; R73.03 Prediabetes; M35.00 Sjogren syndrome, unspecified; E89.0 Postprocedural hypothyroidism
CPT/HCPCS: 99213; G0463

== ENCOUNTER 2024-04-13 02:54 | Day surgery (SDC) | payer MEDICARE, OTHER, SELFPAY ==
[2024-04-04 10:05] VITALS: BMI 31.3
--- NOTE | 2024-04-12 13:39 | WPDANESEPPF ---
Anes - Initial Pre Proc Eval Procedure: Operation Date: 04/13/24 10:00 Proposed Procedures p Esophagogastroduodenoscopy & Colonoscopy - Wili Fernandes MD Date/Time: 04/12/24 13:39 Surgeon: Wili Fernandes MD Pre Op Diagnosis: RAH, LLQ pain, GERD Patient Data Age: 68 Gender: F Height: 1.7 m Weight: 90.8 kg Allergies Allergy/AdvReac Type Severity Reaction Status Date / Time codeine Allergy Severe Itching Verified 04/13/24 08:40 doxycycline Allergy Intermediate Nausea Verified 04/13/24 08:40 Sulfa (Sulfonamide Allergy Unknown Fever Verified 04/13/24 08:40 Antibiotics) Home Medications ?Medication ?Instructions ?Recorded ?Confirmed ?Type ascorbic acid (vitamin C) 1,000 mg 1 gm PO DAILY 04/02/19 04/13/24 History tablet (Vitamin C With Eliane Hips) calcium carbonate (Calci-Mix) 500 mg PO DAILY 04/02/19 04/13/24 History cholecalciferol (vitamin D3) 125 5,000 unit PO DAILY 04/02/19 04/13/24 History mcg (5,000 unit) capsule coenzyme Q10 10 mg capsule (Co 10 mg PO ONCE 04/02/19 04/13/24 History Q-10) levothyroxine 137 mcg tablet 137 mcg PO DAILY 04/02/19 04/13/24 History multivitamin 1 tablet PO DAILY 04/02/19 04/13/24 History plant stanol bruce 450 mg tablet 450 mg PO DAILY 04/02/19 04/13/24 History (Cholest Off) melatonin 10 mg disintegrating 10 mg PO DAILY 04/03/19 04/13/24 History tablet levocetirizine 5 mg tablet (Xyzal) 5 mg PO DAILY PRN Congestion 05/21/20 04/04/24 History magnesium 250 mg tablet 250 mg PO DAILY PRN useasdirected 08/10/21 04/04/24 History amlodipine 10 mg tablet See Rx Instructions .Route 12/12/23 04/13/24 Rx .COMPLEX #90 tabs atorvastatin 80 mg tablet 80 mg PO DAILY #90 tabs 12/12/23 04/13/24 Rx blood sugar diagnostic (OneTouch #100 ea 12/12/23 01/05/24 Rx Verio test strips) lisinopril 40 mg tablet 40 mg PO DAILY #90 tabs 12/12/23 04/13/24 Rx metoprolol succinate 100 mg 100 mg PO DAILY #90 tabs 12/12/23 04/13/24 Rx tablet,extended release 24 hr (Toprol XL) dicyclomine 10 mg capsule 10 mg PO TID PRN abdominal pain 01/05/24 04/04/24 Rx #90 caps ferrous sulfate 27 mg iron tablet 27 mg PO DAILY 01/05/24 04/13/24 History zolpidem 10 mg tablet 10 mg PO QHS #30 tabs 01/16/24 04/13/24 Rx amoxicillin 875 mg-potassium 1 tablet PO Q12H 10 days #20 tabs 03/02/24 04/04/24 Rx clavulanate 125 mg tablet pseudoephedrine HCl 120 mg 120 mg PO Q12H PRN nasal 03/02/24 04/04/24 Rx tablet,extended release (12 Hour congestion #20 tabs Decongestant ER) metformin 1,000 mg tablet 1,000 mg PO BID #180 tabs 03/08/24 04/13/24 Rx omeprazole 20 mg capsule,delayed 20 mg PO DAILY #90 caps 03/08/24 04/13/24 Rx release Patient hx anesthesia problems: none Family hx anesthesia problems: none Results Review: All pre-operative results and documents have been reviewed as part of the pre-operative evaluation. [facility] Past Medical History Medical History (Updated 04/13/24 @ 08:50 by Laureano Nguyen DO) Hepatitis C Hepatitis B Type 2 diabetes mellitus Irritable bowel syndrome with diarrhea Carotid artery stenosis Sjogren syndrome Abdominal pain, left lower quadrant IFG (impaired fasting glucose) Pre-diabetes Surgical History Surgical History H/O thyroidectomy H/O: hysterectomy Family History Family History Sibling Family history of malignant neoplasm of ovary Family history of lung cancer Family history of malignant neoplasm of breast in first degree relative Father Malignant neoplasm of prostate Family history of malignant neoplasm of kidney Mother Family history of malignant neoplasm of ovary Other Family history of cardiovascular disease Family history of malignant neoplasm Social History Social History Social History: Caffeine-coffee/tea Smoking status: Former smoker Second hand tobacco smoke exposure: No Smoking end date: 04/25/78 Alcohol intake: current Alcohol use details: occasionally Substance use: never Substance use type: does not use Do You Feel Safe in your Home?: Yes Lack of Transportation: No Lack of Food: Never True Current Housing: I Have Housing Concerned About Future Housing: No Difficulty Paying Gas/Electric Bills: No Difficulty Paying for Meds: No Currently Unemployed: No Education: High School Diploma/GED Difficulty w/ Childcare or Family Care: No Spiritual care concerns: No Anes - Eval Final PreProcedure Day of Procedure 04/12/24 13:39 Patient weight: obese Heart: regular rate and rhythm Lungs: clear to auscultation Airway: Mallampati scale class II Neurological: alert and oriented Last oral intake: >/= 8 hours ASA classification: III Emergent: no Anesthetic plan: proceed Anesthesia type and monitoring: general GIVS and standard monitoring Results Review: All pre-operative results and documents have been reviewed as part of the pre-operative evaluation. Informed Consent: The patient's anesthetic plan and its attendant risks and benefits were discussed with the patient/family/POA. Questions were solicited and answers provided to the satisfaction of the patient/family/POA.
[2024-04-13 08:42] VITALS: BP 128/91; PULSE 96; RESP 18; TEMP 36.3; O2SAT 98; BMI 30.7
[2024-04-13] MEDS: LACTATED RINGERS 1,000 ML 150 ML IV CONT (08:56)
[2024-04-13 08:59] LABS: Glucose Point of Care 131 mg/dl (65-105)
--- NOTE | 2024-04-13 09:23 | PM.HPGS ---
History of Present Illness History of Present Illness Consent: Risks, benefits, and alternatives have been discussed and questions answered. Patient agrees to proceed with procedure. Chief complaint: RAH, LLQ pain, GERD Narrative: Nicole Barth is a 68 year old female here for egd and colonoscopy, last time 2018 without major findings, recently with mild anemia, gerd on omeprazole and also ibs-d, normally with loose stools, celiac panel negative. Review of Systems Review of Systems: All systems reviewed & are unremarkable except as noted in HPI and below PMFSH Past Medical History Medical History (Updated 04/13/24 @ 08:50 by Laureano Nguyen, DO) Hepatitis C Hepatitis B Type 2 diabetes mellitus Irritable bowel syndrome with diarrhea Carotid artery stenosis Sjogren syndrome Abdominal pain, left lower quadrant IFG (impaired fasting glucose) Pre-diabetes Surgical History Surgical History H/O thyroidectomy H/O: hysterectomy Family History Family History Sibling Family history of malignant neoplasm of ovary Family history of lung cancer Family history of malignant neoplasm of breast in first degree relative Father Malignant neoplasm of prostate Family history of malignant neoplasm of kidney Mother Family history of malignant neoplasm of ovary Other Family history of cardiovascular disease Family history of malignant neoplasm Social History Social History Social History: Caffeine-coffee/tea Smoking status: Former smoker Second hand tobacco smoke exposure: No Smoking end date: 04/25/78 Alcohol intake: current Alcohol use details: occasionally Substance use: never Substance use type: does not use Do You Feel Safe in your Home?: Yes Lack of Transportation: No Lack of Food: Never True Current Housing: I Have Housing Concerned About Future Housing: No Difficulty Paying Gas/Electric Bills: No Difficulty Paying for Meds: No Currently Unemployed: No Education: High School Diploma/GED Difficulty w/ Childcare or Family Care: No Spiritual care concerns: No Meds Home Medications and Allergies Home Medications ?Medication ?Instructions ?Recorded ?Confirmed ?Type ascorbic acid (vitamin C) 1,000 mg 1 gm PO DAILY 04/02/19 04/13/24 History tablet (Vitamin C With Eliane Hips) calcium carbonate (Calci-Mix) 500 mg PO DAILY 04/02/19 04/13/24 History cholecalciferol (vitamin D3) 125 5,000 unit PO DAILY 04/02/19 04/13/24 History mcg (5,000 unit) capsule coenzyme Q10 10 mg capsule (Co 10 mg PO ONCE 04/02/19 04/13/24 History Q-10) levothyroxine 137 mcg tablet 137 mcg PO DAILY 04/02/19 04/13/24 History multivitamin 1 tablet PO DAILY 04/02/19 04/13/24 History plant stanol bruce 450 mg tablet 450 mg PO DAILY 04/02/19 04/13/24 History (Cholest Off) melatonin 10 mg disintegrating 10 mg PO DAILY 04/03/19 04/13/24 History tablet levocetirizine 5 mg tablet (Xyzal) 5 mg PO DAILY PRN Congestion 05/21/20 04/04/24 History magnesium 250 mg tablet 250 mg PO DAILY PRN useasdirected 08/10/21 04/04/24 History amlodipine 10 mg tablet See Rx Instructions .Route 12/12/23 04/13/24 Rx .COMPLEX #90 tabs atorvastatin 80 mg tablet 80 mg PO DAILY #90 tabs 12/12/23 04/13/24 Rx blood sugar diagnostic (OneTouch #100 ea 12/12/23 01/05/24 Rx Verio test strips) lisinopril 40 mg tablet 40 mg PO DAILY #90 tabs 12/12/23 04/13/24 Rx metoprolol succinate 100 mg 100 mg PO DAILY #90 tabs 12/12/23 04/13/24 Rx tablet,extended release 24 hr (Toprol XL) dicyclomine 10 mg capsule 10 mg PO TID PRN abdominal pain 01/05/24 04/04/24 Rx #90 caps ferrous sulfate 27 mg iron tablet 27 mg PO DAILY 01/05/24 04/13/24 History zolpidem 10 mg tablet 10 mg PO QHS #30 tabs 01/16/24 04/13/24 Rx amoxicillin 875 mg-potassium 1 tablet PO Q12H 10 days #20 tabs 03/02/24 04/04/24 Rx clavulanate 125 mg tablet pseudoephedrine HCl 120 mg 120 mg PO Q12H PRN nasal 03/02/24 04/04/24 Rx tablet,extended release (12 Hour congestion #20 tabs Decongestant ER) metformin 1,000 mg tablet 1,000 mg PO BID #180 tabs 03/08/24 04/13/24 Rx omeprazole 20 mg capsule,delayed 20 mg PO DAILY #90 caps 03/08/24 04/13/24 Rx release Allergies Allergy/AdvReac Type Severity Reaction Status Date / Time codeine Allergy Severe Itching Verified 04/13/24 08:40 doxycycline Allergy Intermediate Nausea Verified 04/13/24 08:40 Sulfa (Sulfonamide Allergy Unknown Fever Verified 04/13/24 08:40 Antibiotics) Vital Signs Vital Signs - 24 hr 04/13/24 08:42 Temperature 97.4 F L Pulse Rate 96 Respiratory Rate 18 Blood Pressure 128/91 H Pulse Oximetry 98 Oxygen Delivery Room Air Exam Const: General: comfortable and no acute distress HENMT: Face/Nose/Sinus: Normal nares present Eyes: General: appearance normal, both eyes and all related structures Neck: Neck: no JVD Resp: Auscultation: clear to auscultation bilaterally Cardio: Rate: regular rate Rhythm: regular rhythm GI: Inspection: non-distended GI Palp: Yes Soft to palpation Skin: General skin exam: normal color Neuro: General: gait normal Speech: normal speech Extrem: General: normal to inspection Psych: Mental Status: mental status grossly normal Assessment and Plan Assessment and plan (1) Gastroesophageal reflux disease: Code(s): K21.9 - Gastro-esophageal reflux disease without esophagitis Status: Acute Assessment and Plan: egd (2) Irritable bowel syndrome with diarrhea: Code(s): K58.0 - Irritable bowel syndrome with diarrhea Status: Acute Assessment and Plan: colonoscopy with random bx (3) Anemia: Qualifiers: Anemia type: unspecified type Qualified Code(s): D64.9 - Anemia, unspecified Code(s): D64.9 - Anemia, unspecified Status: Acute
--- NOTE | 2024-04-13 09:44 | SUR.OPER ---
EGD start 933 end 936, Colonoscopy start 943
[2024-04-13 10:02] VITALS: BP 98/65; PULSE 67; RESP 20; O2SAT 93
[2024-04-13 10:12] VITALS: BP 102/67; PULSE 76; RESP 18; O2SAT 97
[2024-04-13 10:22] VITALS: BP 116/78; PULSE 71; RESP 20; O2SAT 96
== END 2024-04-13 10:34 | disposition home or self-care (01) ==
PROVIDERS: PCP Internal Medicine; Referring Provider Nurse Practitioner Family; Visit Provider Internal Medicine Gastroenterology
PROC: 0DJ08ZZ Inspection of Upper Intestinal Tract, Via Natural or Artificial Opening Endoscopic (ICD-10-PCS; CPT 43235; principal; 2024-04-13 10:00)
DX: K52.832 Lymphocytic colitis (principal); K29.50 Unspecified chronic gastritis without bleeding; D50.9 Iron deficiency anemia, unspecified; K21.9 Gastro-esophageal reflux disease without esophagitis; K44.9 Diaphragmatic hernia without obstruction or gangrene; Z79.84 Long term (current) use of oral hypoglycemic drugs; Z87.891 Personal history of nicotine dependence
CPT/HCPCS: 45380; 43239; 82948; 88305; 88342; J2003; J2704; J7120

== ENCOUNTER 2025-04-05 08:44 | Outpatient (CLI) | payer MEDICARE, OTHER, SELFPAY ==
--- NOTE | ~2025-04-05 | CT_ITS ---
EXAM/PROCEDURE: CT soft tissue neck w con HISTORY: R22.1 - Localized swelling, mass and lump, neck COMPARISON: None available. TECHNIQUE: Contrast-enhanced soft tissue neck CT FINDINGS: A marker is placed overlying the right lateral soft tissues immediately anterior to the external auditory canal. Just below this level, a 10 x 10 mm nodule is present within the posterior margin of the right parotid gland. The right parotid gland appears slightly increased in density and size compared to the left parotid gland. Scattered bilateral jugulodigastric, posterior triangle, occipital and submental lymph nodes present. No dominant mass or drainable fluid collection. The parapharyngeal and retropharyngeal spaces appear symmetric. Fossa of Rosenmuller appear normal. Oral facial area obscured by extensive dental amalgam artifact. Thyroidectomy surgical clips noted. Vascular structures are patent. Bones appear intact with moderate degenerative changes throughout the cervical spine. No acute process seen in the visualized intracranial contents or upper chest. IMPRESSION: 10 mm right parotid gland nodule possibly representing benign lymph node but small neoplastic nodule is not excluded. The right parotid gland also appears borderline increased in size with slight infiltrative appearing changes which could represent parotiditis. Minimal follow-up should include repeat soft tissue neck CT in 3 months or sooner if clinically appropriate. Reviewed, dictated and finalized at location [facility] [employer] [employer] IMPRESSION: 10 mm right parotid gland nodule possibly representing benign lymph node but sm all neoplastic nodule is not excluded. The right parotid gland also appears bor derline increased in size with slight infiltrative appearing changes which coul d represent parotiditis. Minimal follow-up should include repeat soft tissue ne ck CT in 3 months or sooner if clinically appropriate.
[2025-04-05 11:19] LABS: Estimated Glomerular Filt Rate > 60
== END 2025-04-05 08:45 | disposition home or self-care (01) ==
PROVIDERS: PCP Internal Medicine; Visit Provider Otolaryngology Otolaryngology/Facial Plastic Surgery
DX: K11.5 Sialolithiasis (principal)
CPT/HCPCS: 70491; Q9967